=== PATIENT | female | born 1955 | race Two or more races ===

== ENCOUNTER 2024-08-02 06:11 | Day surgery (SDC) | payer OTHER, MEDICAID ==
[2024-07-31 09:05] LABS: Urine Bacteria None Seen /hpf (None Seen)
[2024-07-31 09:18] LABS: Basophils # (auto) 0.1 10 ^3/uL (0-0.2); Basophils % (auto) 1.3 % (0.0-2.0); Eosinophils # (auto) 0.1 10 ^3/uL (0-0.8); Eosinophils % (auto) 2.4 % (0.0-7.0); Hematocrit 40.1 % (36.0-46.0); Hemoglobin 13.6 g/dL (12.2-16.2); Lymphocytes # (auto) 2.3 10 ^3/uL (0.4-5.4); Lymphocytes % (auto) 38.6 % (10.0-50.0); Mean Corpuscular Hemoglobin 30.5 pg (28.0-32.0); Mean Corpuscular Hgb Conc. 33.9 g/dL (32.0-36.0); Mean Corpuscular Volume 90.1 fL (80.0-100.0); Monocytes # (auto) 0.5 10 ^3/uL (0-1.3); Monocytes % (auto) 8.4 % (0.0-12.0); Neutrophils % (auto) 49.3 % (37.0-80.0); Platelet Count (auto) 266 10^3/uL (140-450); Red Blood Cells 4.45 10^6/uL (4.0-5.20); Red Cell Distribution Width 14.7 % (11.8-14.3); White Blood Cell 6.1 10^3/uL (4.4-10.8)
[2024-07-31 09:21] LABS: Urine Blood Negative /uL (Negative); Urine Clarity Clear (Clear); Urine Color Light-Yellow (Yellow); Urine Protein, UAD Negative (Negative); Urine Specific Gravity 1.016 (1.001-1.035); Urine Squamous Epithelial Cell FEW /hpf (<5); Urine Urobilinogen Normal (Negative); Urine WBC 8 /HPF (0-5)
[2024-07-31 09:25] LABS: Partial Thromboplastin Time 26.5 SEC (24.5-34.5); Prothrombin Time 10.6 sec (9.3-11.8)
[2024-07-31 09:40] LABS: Alanine Aminotransferase 23 U/L (7-40); Alkaline Phosphatase 61 U/L (46-116); Anion Gap 9 (5-15); Calcium 10.1 mg/dL (8.7-10.4); Carbon Dioxide 29 mmol/L (20-31); Chloride 103 mmol/L (98-107); Glucose 92 mg/dL (74-106); Potassium 4.2 mmol/L (3.5-5.1); Sodium 141 mmol/L (136-145)
[2024-07-31 09:41] LABS: BUN/Creatinine Ratio 22.1 (10.0-20.0); Blood Urea Nitrogen 19 mg/dL (9-23); Total Protein 7.7 g/dL (5.7-8.2)
[2024-07-31 09:42] LABS: Aspartate Aminotransferase 26 U/L (13-40)
[2024-07-31 09:43] LABS: Bilirubin, Total 0.8 mg/dL (0.2-1.0)
[2024-07-31 10:04] LABS: Albumin 4.9 g/dL (3.2-4.8)
[~2024-08-02] VITALS: Ht 170.2 cm; Wt 108.0 kg
[~2024-08-02 06:11] MED LIST: B-COCAP34 OR; BACL20TA PO; CALC-134 XX; CHOL200021 PO; CRAN1CAP11 PO; FLUT250M2 IN; LEVO-849 GT; NAPR-957 PO; OMEG1400 PO; PLANTAB3 PO; TRAM50TA2 PO; TURMPOW2 XX; [UNRECOGNIZED DRUG - CODE] OR; [UNRECOGNIZED DRUG - CODE] PO
[2024-08-02] MEDS ORDERED: fentaNYL CITRATE 100 MCG/2 ML VL ONE ×2 (07:01→08:02)
[2024-08-02] MEDS ORDERED: PROPOFOL 10 MG/ML 20 ML IV ONE (07:02)
[2024-08-02] MEDS ORDERED: ceFAZolin 2 GM/D5W50ml 50 ML IV ONE (07:07)
[2024-08-02] MEDS ORDERED: DexAMETHasone SOD PHOS 10MG/1ML VIAL INJ ONE (07:39)
[2024-08-02] MEDS ORDERED: ONDANSETRON HCL 4 MG/2 ML VIAL ONE (07:39)
[2024-08-02] MEDS ORDERED: ePHEDrine SULFATE 50 MG/ML AMP ONE (07:39)
[2024-08-02] MEDS ORDERED: PHENYLEPHRINE HCL 10 MG/ML VL ONE (07:58)
[2024-08-02] MEDS: BUPIVACAINE 0.5% P/F INJ 10 ML VIAL ONE (08:00)
[2024-08-02] MEDS: LIDOCAINE W/ EPINEPHRINE 1% 20ML VIAL ONE (08:00)
[2024-08-02 08:09] VITALS: PULSE 84; RESP 12; TEMP 97.3; O2SAT 98
[2024-08-02] MEDS ORDERED: HYDROmorphone HCL 2 MG/ML VL/or syr IV PRN (08:15)
[2024-08-02] MEDS ORDERED: ONDANSETRON HCL 4 MG/2 ML VIAL IV ONE (08:15)
[2024-08-02] MEDS ORDERED: MEPERIDINE HCL (25 MG/ML) 1ML VIAL IV PRN (08:15)
[2024-08-02] MEDS ORDERED: ACETAMINOPHEN IV 100 ML IV ONE (08:16)
[2024-08-02] MEDS: ACETAMINOPHEN IV 1000 MG/100ML (10MG/ML) IV PRN (08:23)
--- NOTE | 2024-08-02 08:39 | DVHOP ---
DATE OF SURGERY: 08/02/2024 DATE OF OPERATION: 08/02/2024 PREOPERATIVE DIAGNOSIS: Right lower abdominal wall mass. POSTOPERATIVE DIAGNOSIS: Fat necrosis right lower quadrant. SURGEON: Amando Marino MD PURLER: Dr. Benitez Hernandez. ANESTHESIA: General inhalation. ANESTHESIOLOGIST: By Dr. Dahl. DESCRIPTION OF PROCEDURE: Under general anesthesia with the patient's skin prepped and draped, incision was made over the palpable masses. The patient has outlined in the preoperative area with her present. The incision was carried down through abundant adipose tissue onto the fibers of rectus muscle. The fat appeared to be ischemic with herniated ischemic fat, which was palpably indurated. It was excised and submitted for histopathologic examination. Subsequently, the wound was irrigated. Hemostasis was accomplished. A 10 mm Damian-Qiu drain was placed in approximation of the wound accomplished using Monocryl sutures, Dermabond glue and Steri-Strips. The patient remained stable throughout the procedure, left the operating room following an accurate needle and sponge count. was thoroughly informed in the waiting room. Amando Marino MD PF/CHENTE TID: [id number] RECEIPT: [id number]
[2024-08-02 08:54] VITALS: BP 127/49; PULSE 73; RESP 13; O2SAT 97
== END 2024-08-02 09:09 | disposition home or self-care (01) ==
LOC: SUR 06:11
PROVIDERS: ATTEND Surgery
DX: R19.03 Right lower quadrant abdominal swelling, mass and lump (principal); K65.4 Sclerosing mesenteritis; K31.89 Other diseases of stomach and duodenum; E66.9 Obesity, unspecified; Z68.37 Body mass index [BMI] 37.0-37.9, adult; Z98.51 Tubal ligation status; Z90.49 Acquired absence of other specified parts of digestive tract; Z98.890 Other specified postprocedural states
CPT/HCPCS: 22901; 36415; 80053; 81001; 85025; 85610; 85730; 88305; J0690; J1100; J2371; J2405; J2704; J3010; J3490; J0131